=== PATIENT | male | born 1965 | race Caucasian/White ===

== ENCOUNTER 2021-04-12 15:58 | Outpatient (CLI) | payer BC, SELFPAY | END 2021-04-12 15:59 | disposition home or self-care (01) | LOC: CHSLAB 16:00 | PROVIDERS: PCP Internal Medicine; Visit Provider Specialist | DX: D22.21 Melanocytic nevi of right ear and external auricular canal (principal) | CPT/HCPCS: 88305 ==

== ENCOUNTER 2021-10-06 01:36 | Day surgery (SDC) | payer BC, SELFPAY ==
[2021-09-20 13:46] VITALS: BMI 24.3
[2021-10-06 07:52] VITALS: BP 119/82; PULSE 73; RESP 20; TEMP 35.6; O2SAT 98; BMI 25.7
[2021-10-06] MEDS: LACTATED RINGERS 1,000 ML 150 ML IV CONT (08:12)
--- NOTE | 2021-10-06 08:28 | PM.IMHP ---
H&P: HPI History of Present Illness Date/Time: 10/06/21 08:28 Chief Complaint: heartburn, dysphagia, family history colon cancer Narrative: this is a 56-year-old man who presents for EGD and colonoscopy. He states that he has some difficulty swallowing and has to drink a lot a water. He also has frequent episodes of heartburn. He has been on Nexium and that seems to be helping. He did have a EGD about 10 years ago. He also has had occasional bright red blood with hemorrhoids but denies any blood mixed in stool. He has a family history of colon cancer. His last colonoscopy was about 10 years ago. Review of Systems Review of Systems: All systems reviewed & are unremarkable except as noted in HPI and below Constitutional: Constitutional: Denies chills, Denies fever(s), Denies headache(s) and Denies weight loss Eyes: Eyes: Denies change in vision ENT: Denies dizziness, Denies headache(s), Denies neck mass and Denies throat swelling Cardiovascular: Cardiovascular: Denies chest pain, Denies lightheadedness and Denies dyspnea Respiratory: Respiratory: Denies cough, Denies dyspnea and Denies wheezing Gastrointestinal: Gastrointestinal: Reports as per HPI, Denies abdominal pain, Denies change in bowel habits, Denies nausea and Denies vomiting Genitourinary: Genitourinary: Denies hematuria and Denies dysuria Musculoskeletal: Musculoskeletal: Reports as per HPI Integumentary/Breasts: Skin/Breast: Reports as per HPI Neurologic: Denies dizziness and Denies headache(s) Allergic/Immunologic: Allergic/Immunologic: Denies throat swelling and Denies wheezing [facility] Family History Family History (Updated 10/06/21 @ 08:30 by Damion Galindo DO) Other Carcinoma of colon Social History Social History Smoking status: Former smoker Tobacco type: cigarettes Alcohol intake: never Substance use: never Substance use type: does not use Living arrangements: alone Spiritual care concerns: No Meds Home Medications and Allergies Home Medications Medication Instructions Recorded Confirmed Type No Home Medications 10/06/21 10/06/21 History Allergies Allergy/AdvReac Type Severity Reaction Status Date / Time No Known Allergies Allergy Verified 10/06/21 07:51 Vital Signs Vital Signs - 24 hr 10/06/21 07:52 Temperature 35.6 C L Pulse Rate 73 Respiratory Rate 20 Blood Pressure 119/82 Pulse Oximetry 98 Exam Const: General: no acute distress and alert Orientation/consciousness: patient oriented x3 HENMT: Head: normocephalic and atraumatic Ears: hearing grossly normal bilaterally General nose exam: Normal nares present Mouth: Yes Normal oral and palatal mucosa present Eyes: Periorbital: periorbital findings normal Sclera: sclerae normal EOM: EOMs intact bilaterally Neck: Neck: normal visual inspection, no lymphadenopathy and trachea midline Chest: Chest palpation & inspection: normal inspection of the chest Resp: Effort & Inspection: normal respiratory effort Auscultation: clear to auscultation bilaterally Cardio: Jugular venous distension: no JVD Rate: regular rate Rhythm: regular rhythm Heart sounds: S1 normal heart sound present and S2 normal heart sound present Peripheral pulses: Peripheral pulses 2+ throughout GI: Inspection: normal to inspection GI Palp: Yes Soft to palpation, No Tenderness to palpation present (GI), No Guarding due to palpation present (GI) and No Rebound tenderness present Percussion: Yes normal to percussion Auscultation: normal bowel sounds : General: Yes no CVA tenderness Back/Spine/Pelvis: Back: no CVA tenderness Neuro: General: patient oriented x3, no focal motor deficits and CN's II-XI intact bilaterally Cognition (Neuro): normal cognition Speech: normal speech Motor exam (neuro): 5/5 motor strength present throughout Extrem: General: capillary refill normal and no clubbing, cyanosi
--- NOTE | 2021-10-06 09:01 | P.PNAN_ITS ---
Anes - Initial Pre Proc Eval Procedure: Operation Date: 10/06/21 09:00 Proposed Procedures p Esophagogastroduodenoscopy & Colonoscopy - Damion Galindo DO Date/Time: 10/06/21 09:01 Surgeon: Damion Galindo DO Pre Op Diagnosis: melena, epigastric pain Patient Data Age: 56 Gender: M Height: 1.8 m Weight: 83.7 kg Last Vital Signs Temp 96.1 F L 10/06/21 07:52 Pulse 73 10/06/21 07:52 Resp 20 10/06/21 07:52 BP 119/82 10/06/21 07:52 Pulse Ox 98 10/06/21 07:52 Allergies Allergy/AdvReac Type Severity Reaction Status Date / Time No Known Allergies Allergy Verified 10/06/21 07:51 Home Medications Medication Instructions Recorded Confirmed Type No Home Medications 10/06/21 10/06/21 History Patient hx anesthesia problems: none Family hx anesthesia problems: none Results Review: All pre-operative results and documents have been reviewed as part of the pre-operative evaluation. [facility] Family History Family History (Updated 10/06/21 @ 08:30 by Damion Galindo DO) Other Carcinoma of colon Social History Social History Smoking status: Former smoker Tobacco type: cigarettes Alcohol intake: never Substance use: never Substance use type: does not use Living arrangements: alone Spiritual care concerns: No Anes - Eval Final PreProcedure Day of Procedure 10/06/21 09:01 Patient weight: overweight Heart: regular rate and rhythm Lungs: clear to auscultation Airway: Mallampati scale class II Neurological: alert and oriented Last oral intake: >/= 8 hours ASA classification: II Emergent: no Anesthetic plan: proceed Anesthesia type and monitoring: general GIVS and standard monitoring Results Review: All pre-operative results and documents have been reviewed as part of the pre-operative evaluation. Informed Consent: The patient's anesthetic plan and its attendant risks and benefits were discussed with the patient/family/POA. Questions were solicited and answers provided to the satisfaction of the patient/family/POA.
--- NOTE | 2021-10-06 09:39 | SUR.OPER ---
upper endoscopy procedure end 927, colonoscopy procedure start 934
[2021-10-06 09:54] VITALS: BP 101/72; PULSE 70; RESP 16; O2SAT 99
[2021-10-06 10:04] VITALS: BP 128/60; PULSE 64; RESP 18; O2SAT 99
[2021-10-06 10:14] VITALS: BP 136/64; PULSE 66; RESP 20; O2SAT 99
== END 2021-10-06 10:30 | disposition home or self-care (01) ==
PROVIDERS: PCP Internal Medicine; Visit Provider Surgery
PROC: 0DJ08ZZ Inspection of Upper Intestinal Tract, Via Natural or Artificial Opening Endoscopic (ICD-10-PCS; CPT 43235; principal; 2021-10-06 09:00)
DX: Z12.11 Encounter for screening for malignant neoplasm of colon (principal); K64.8 Other hemorrhoids; Z80.0 Family history of malignant neoplasm of digestive organs; K22.2 Esophageal obstruction; K21.00 Gastro-esophageal reflux disease with esophagitis, without bleeding; K29.00 Acute gastritis without bleeding; Z87.891 Personal history of nicotine dependence
CPT/HCPCS: 45378; 43239; 43249; 87081; 88305; C1726; J2704; J7120

== ENCOUNTER 2022-08-29 10:47 | Outpatient (CLI) | payer OTHER, SELFPAY ==
--- NOTE | ~2022-08-29 | XR_ITS ---
XR_CERV2-3V_CR DATE: 08/29/2022 11:15 INDICATION: Chronic lower neck pain TECHNIQUE: AP, open-mouth, lateral and odontoid views COMPARISON: None FINDINGS: C1 and C2 are normally aligned and the odontoid process is intact. No fracture or dislocati on or locked facet or prevertebral soft tissue swelling. There is mild degenerative disc disease. IMPRESSION: Mild degenerative disc disease Reviewed, dictated and finalized at [facility]. Reviewed, dictated and finalized at location [facility]. ER SERVICES ASSISTANT
== END 2022-08-29 10:48 | disposition home or self-care (01) ==
LOC: CHSIMG 10:51
PROVIDERS: PCP Internal Medicine; Visit Provider Internal Medicine
DX: M54.2 Cervicalgia (principal)
CPT/HCPCS: 72040

== ENCOUNTER 2023-11-13 10:29 | Outpatient (CLI) | payer OTHER, SELFPAY | END 2023-11-13 10:30 | disposition home or self-care (01) | LOC: CHSLAB 10:32 | PROVIDERS: PCP Internal Medicine; Visit Provider Specialist | DX: C44.612 Basal cell carcinoma of skin of right upper limb, including shoulder (principal) | CPT/HCPCS: 88305 ==

== ENCOUNTER 2024-03-25 12:48 | Outpatient (CLI) | payer OTHER, SELFPAY | END 2024-03-25 12:49 | disposition home or self-care (01) | PROVIDERS: PCP Internal Medicine; Visit Provider Specialist | DX: C44.311 Basal cell carcinoma of skin of nose (principal); L85.9 Epidermal thickening, unspecified | CPT/HCPCS: 88305 ==

== ENCOUNTER 2025-09-09 12:00 | Outpatient (CLI) | payer OTHER, SELFPAY ==
--- NOTE | ~2025-09-09 | XR_ITS ---
XR_CERV2-3V_CR Indication: NECK PAIN Comparison: None Findings: The vertebral heights are intact. No fracture or subluxation. Moderate loss of disc height at C5-6 and C6-7. Soft tissues unremarkable Impression: No acute abnormality. Reviewed, dictated and finalized at location [facility]. [facility] Impression: No acute abnormality.
--- OUTSIDE RECORDS SUMMARY | 2025-09-09 14:00 | XMS_ITS | Clinical Summary ---
Author Organization [facility] Address [address] [place] [id number] Care Team Providers Care Automation Operator Name Role Phone Manfred Arenas MD Primary Care Provider + [phone] Allergies No known active allergies Medications pantoprazole DR (PROTONIX) 40 mg EC tabletIndications: Treatment of Non-Bleeding Gastric Disorder Take 1 tablet (40 mg total) by mouth every morning 08/22/20 24 Active acetaminophen (TYLENOL) 500 mg tablet Take 1 tablet (500 mg total) by mouth every 6 (six) hours as needed for pain or headaches Active multivitamin tabletIndications: Vitamin Deficiency Prevention Take 1 tablet by mouth every morning Active ascorbic acid, vitamin C, 250 mg tablet,chewableInd ications:supplemen t Take 120 mg by mouth with lunch Active zinc gluconate 30 mg tabletIndications: supplement Take 1 tablet by mouth daily before dinner Active ibuprofen (ADVIL,MOTRIN) 600 mg tablet Take 1 tablet (600 mg total) by mouth every 6 (six) hours as needed for pain 01/25/20 25 Active Additional Information Patient taking differently:600 mg oral Every 6 hours PRN, pain,Indications: Pain, Informant: Self, Reported on 02/19/2025 nitroglycerin (NITRO-BID) 2 % ointment Place 0.5 inches on the skin every 8 (eight) hours Please place it on your flap (the skin overlying your nose up to your nasal bridge) THREE TIMES DAILY and use the bottle we gave you until follow up 01/23/20 25 Active ondansetron ODT (ZOFRAN-ODT) 4 mg disintegrating tablet Take 1 tablet (4 mg total) by mouth every 8 (eight) hours as needed for nausea or vomiting 8 tablet 01/23/20 25 Active oxyCODONE (ROXICODONE) 5 mg immediate release tabletIndications: Pain Take 1 tablet (5 mg total) by mouth every 4 (four) hours as needed for pain for up to 15 doses 15 tablet 02/20/20 25 Active Active Problems Problem Noted Date Diagnosed Date Basal cell carcinoma (BCC) of skin of nose 02/02 Nasal valve stenosis 10/20/2024 Basal cell carcinoma of nose 10/20/2024 Hypertrophic scar of skin 10/20/2024 Planned postoperative wound closure 10/20/2024 Encounters Date Type Department Care Team Description 08/14/2025 8:40 AM MOLD CHIPPER Office Visit [facility] [address] [place] [address] Office [address] [phone] Gaudencio Joyce MD Hypertrophic scar (Primary Dx); History of basal cell carcinoma 07/20/2025 2:20 PM CDT Procedure visit [facility] [address] [place] [address] Office [address] [phone] Gaudencio Joyce MD Hypertrophic scar of skin [L91.0] (Primary Dx); Basal cell carcinoma of nose [C44.311] from Last 3 Months Surgical History Surgery Date Site/Laterality Comments VASECTOMY N/A COLONOSCOPY 09/24/2019 - 09/23/2020 TISSUE TRANSFER 01/22/2025 Face/N/A Procedure: REARRANGEMENT SOFT TISSUE AND LOCAL FLAP HEAD OR NECK.; Surgeon: Gaudencio Joyce MD; Location: [facility]; Service: Otolaryngology; Laterality: N/A; FACIAL RECONSTRUCTION 01/22/2025 Face/N/A Procedure: COMPLEX REPAIR; Surgeon: Gaudencio Jocye MD; Location: [facility]; Service: Otolaryngology; Laterality: N/A; GRAFT EAR CARTILAGE 01/22/2025 Ear/N/A Procedure: GRAFT EAR CARTILAGE.; Surgeon: Gaudencio Joyce MD; Location: [facility]; Service: Otolaryngology; Laterality: N/A; REPAIR NASAL VALVE 01/22/2025 Nose/N/A Procedure: REPAIR NASAL VALVE STENOSIS; Surgeon: Gaudencio Joyce MD; Location: [facility]; Service: Otolaryngology; Laterality: N/A; MOHS SURGERY 01/22/2025 REARRANGEMENT SOFT TISSUE AND LOCAL FLAP HEAD OR NECK. N/A General COMPLEX REPAIR N/A General WOUND PREP - FACE/SCALP/NECK N/A General MELOLABIAL FLAP N/A General GRAFT EAR CARTILAGE. [16106 (CPT )] N/A General REPAIR NASAL VALVE STENOSIS TISSUE TRANSFER 02/19/2025 Face/N/A Procedure: TRANSFER ADJACENT TISSUE - FACE; Surgeon: Gaudencio Joyce MD; Location: [facility]; Service: Otolaryngology; Laterality: N/A; MOHS SURGERY 02/19/2025 Face/N/A Procedure: Complex Repair; Surgeon: Gaudencio Joyce MD; Location: [facility]; Service: Otolaryngology; Laterality: N/A; Medical History Medical History Date Comments Arthritis GERD (gastroesophageal reflux disease) PONV (postoperative nausea and vomiting) Family History Medical History Relation Name Comments Cancer Father Anesthesia problems Neg Hx Relation Name Status Comments Father Social History Tobacco Use Types Packs/Day Years Used Date Smoking Tobacco: Former Cigarettes Smokeless Tobacco: Former Chew Quit: 2024 Tobacco Cessation:Counseling Given: Not Answered AUDIT-C Answer Date Recorded Q1: How often do you have a drink containing alc ohol? Monthly or less 02/19/2025 Q2: How many drinks containi ng alcohol do you have on a typical day when you are drinking? 1 or 2 02/19/2025 Q3: How often do you have si x or more drinks on one occasion? Never 02/19/2025 Personal Safety Answer Date Recorded Have you ever been in or are you currently in a harmful physical or emotional relationship or is someone making you feel afraid or unsafe? Denies 02/19/2025 Sex and Gender Information Value Date Recorded Sex Assigned at Not on file Legal Sex Male 8:00 AM MOLD CHIPPER Gender Identity Not on file Sexual Orientation Not on file Last Filed Vital Signs Vital Sign Reading Time Taken Comments Blood Pressure 144/89 07/20/2025 2:10 PM CDT Pulse 66 07/20/2025 2:10 PM CDT Temperature 36.3 C (97.3 F) 02/19/2025 11:15 AM CDT Respiratory Rate 27 02/19/2025 12:00 PM CDT Oxygen Saturation 99% 02/19/2025 12:00 PM CDT Inhaled Oxygen Concentration - - Weight 81.8 kg (180 lb 4.8 oz) 02/19/2025 8:27 A M CDT Height 180.3 cm (5' 11) 02/19/2025 8:27 AM CDT Body Mass Index 25.15 02/19/2025 8:27 AM CDT Plan of Treatment Health Maintenance Due Date Last Done Comments Colon Cancer Screening-Colonoscopy 1964 Depression Screening 1964 Hepatitis C Screening 1964 Prostate Cancer Screening-PSA 1964 Hepatitis B Screening 1982 Regular Well Visit/Exam 18-64 1982 Covid-19 Vaccine (3 - 2024-2 6 season) 2025 06/24/2021, 06/03/2021 Influenza Vaccine (#1) 2025 DTaP/Tdap/Td Vaccine (2 - Td or Tdap) 09/20/2031 09/20/2021 Pneumococcal vaccine <65 Aged Out 09/20/2021 No longer eligible based on patient's age to complete this topic Zoster Vaccine Completed 01/11/2022, 09/20/2021 Insurance SHIRA NIÑO PREFERRED [employer] [facility] Care Teams Automation Operator Relationship Specialty Start Date End Date Manfred Arenas MD [address] [place] [address] PCP - General Internal Medicine 10/17/24
== END 2025-09-09 12:01 | disposition home or self-care (01) ==
LOC: CHSIMG 12:02
PROVIDERS: PCP Internal Medicine; Visit Provider Internal Medicine
DX: M54.2 Cervicalgia (principal)
CPT/HCPCS: 72040